=== PATIENT | male | born 1975 | race Caucasian/White ===

== ENCOUNTER 2020-12-16 00:32 | Emergency (ER) | payer OTHER ==
[~2020-12-16] VITALS: Ht 170.2 cm; Wt 74.8 kg
[2020-12-16 00:53] VITALS: BP 166/122
--- NOTE | 2020-12-16 00:59 | NUR ---
URINE COLLECTED, SENT TO LAB.
--- NOTE | 2020-12-16 01:53 | NUR ---
PATIENT IS PICKED UP BY .
--- NOTE | 2020-12-16 01:54 | NUR ---
Patient discharged to home in stable condition. Written and verbal after care instructions given. Patient verbalizes understanding of instruction.
== END 2020-12-16 02:09 | disposition home or self-care (01) ==
LOC: ER 00:47
DX: F10.129 Alcohol abuse with intoxication, unspecified (principal); I10 Essential (primary) hypertension; Y90.8 Blood alcohol level of 240 mg/100 ml or more
CPT/HCPCS: 36415; G0480